=== PATIENT | female | born 1965 | race Caucasian/White ===

== ENCOUNTER 2016-10-26 03:40 | Emergency (ER) | payer MEDICAID ==
[~2016-10-26] VITALS: Ht 160 cm; Wt 106.6 kg
[~2016-10-26 03:40] MED LIST: ALEVE220 MG PO; AMARYL 4MG. TAB4 MG PO; ASPIRIN 81MG TA81 MG PO; CARVEDILOL 25MG25 MG PO; CENTRUM1 TAB PO; CIPRO 500MG TA500 MG PO; DIAZEPAM2 M1 PO; DILTIAZEM120 MG PO; GABAPENTIN100 M1 PO; GARLIC500 MG PO; HCTZ/LISINOPRIL1 TA3 PO; HYDROCHLOROTH12.5 M1 PO; HYDROCODONE1 TABLET PO; KEFLEX 500MG.500 MG PO; LIPITOR40 MG PO; LISINOPRIL/HCTZ1 TA3 PO; LORTAB 5/500 501 TAB PO; LORTAB 500 MG-11 TAB PO; METFORMIN500 MG PO; MOTRIN600 MG PO; MULTI VITAMINS1 TA1 PO; PYRIDIUM 200MG200 MG PO; SULFAMETHOXAZOL1 TA6 PO; THE MEDICINE S300 MG PO; TRAMADOL50 M1 PO; TYLENOL ES500 M1 PO; ULTRAM50 MG PO; VALIUM 5MG TABLE5 MG PO; VALIUM5 MG PO; VICODIN 5/500 T1 TAB PO; ZESTRIL 20MG TA20 MG PO
[2016-10-26 04:20] LABS: HEMOGLOBIN 12.6 g/dL (12.2-16.2); LYMPH # 2.5 K/mm3 (0.7-4.5); LYMPH % 30.4 % (10-50.0)
[2016-10-26 04:43] LABS: BUN 13 mg/dL (7-18)
[2016-10-26 04:46] LABS: GFR (ESTIMATED) 66 ML/MIN (59-)
--- NOTE | 2016-10-26 05:26 | Emergency Room Report ---
History of Present Illness Time Seen by [id number] Presenting Problem in Triage Pt arrived:Wheelchair Presenting Problem:PT REPORTS THAT SHE IS HAVING SHARP CHEST PAIN THAT BEGAN AROUND 0300 THIS AM AND IS ON THE LEFT SIDE AND RADIATES UP TOWARD HER SHOULDER. 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 N Clinical Suspician of Infection? N Mental Status: 1 - Regular (Normal Baseline) Sepsis Risk:Low Sepsis Risk Have you (or family members/close friends) recently traveled outside the [place]? N If Yes, where/when: Have you had exposure to infectious disease within the past month? N TB? Other? Specify: Source patient, RN notes reviewed, family, RN/MD Exam Limitations no limitations Comment This is a 51-year-old diabetic female patient presenting to the emergency room with midsternal chest pain, onset 1 hour prior to arrival. Patient advised that she has had heart cath 3 years ago, which was normal. She did not receive any cardiac stents at that time. She recently had a stress test, but she is unaware of results. She has a follow-up appointment with Dr. De Jesus at 8:30 AM this morning. ALLERGIES Coded Allergies: Mushroom (Severe, M-[id number]/THROAT 08/02/16) latex (rash 08/02/16) methocarbamol (08/02/16) Uncoded Allergies: COCA COLA (12/24/13) baby oil (baby oil 10/30/15) Home Medications Reported Medications Glimepiride (Amaryl 4MG) 2 MG PO DAILY Metformin HCL (Metformin) 500 MG PO QHS MULTIVITAMIN (One Daily Multivitamin) 1 TAB PO DAILY Gabapentin (Gabapentin 100MG) 300 MG PO TID TRAMADOL HCL (Tramadol) 50 MG PO PRN PRN PAIN ASPIRIN (Aspirin) 81 MG PO DAILY Carvedilol (Carvedilol 25MG) 25 MG PO BID LISINOPRIL/HYDROCHLOROTHIAZIDE (Lisinopril-Hctz 20-12.5 MG Tab) 1 TAB PO DAILY Naproxen Sodium (Aleve) 500 MG PO BID Diazepam 2 MG PO PRN PRN ANXIETY #60 History Medical History General CAD? No Angina: Yes [place]: No Hypertension? Yes Hyperlipidemia? Yes CHF? Yes DVT? No PE? No COPD? Yes Asthma? No Anemia? No GERD? No Gastric ulcers? No GI Bleed? No Hernia? No Thyroid Problems? No Hypothyroidism? No CVA? No Seizures? No Diabetes? Yes Insulin Dependent: No Insulin Pump: No Home FSBS? Yes Renal Insuffiency? No End Stage Renal Disease? No UTI? Yes Stones? Yes BPH? No GB Disease: Yes Nephritic Syndrome? No Asplenia? No Hepatitis? No Sickle Cell Disease? No Arthritis? Yes Migraines? No Cataracts? No Glaucoma? No MRSA? No HIV? No TB? No Anxiety? No Depression? 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 Months Or More Family History Family Hx Diabetes Yes CAD Yes Hypertension Yes Hyperlipidemia Yes Cancer Yes TB No Social History Smoking Hx Smoker: Former Smoker Tobacco: No Alcohol Alcohol: No Review of Systems All Other Systems Reviewed and Negative Cardiovascular chest pain Physical Exam Vital Signs Vital Signs Date Time Temp Pulse Resp B/P Pulse O2 O2 Flow FiO2 Ox Delivery Rate 10/26 0657 63 18 112/65 97 2 10/26 0622 66 18 122/66 97 10/26 0532 70 16 104/58 95 2 10/26 0441 71 16 115/69 96 2 10/26 0415 96 10/26 0408 76 20 115/48 96 2 10/26 0343 98.6 86 22 134/91 96 2 General Appearance normal appearance, WD/WN Neck normal inspection, non-tender, supple, full range of motion Respiratory Status Yes: trachea midline, chest symmetrical, non tender chest. No: respiratory distress. Lung Sounds bilateral: normal breath sounds, lungs clear. Cardiovascular normal exam, regular rate/rhythm, no peripheral edema, no gallop, no JVD, no murmur, no rub, normal peripheral pulses Gastrointestinal normal bowel sounds, normal exam, non tender, soft, no organomegaly Extremities non-tender, normal range of motion, normal inspection Neurologic alert, air sampling and monitoring II-XII nml as tested, normal exam, oriented x 3 Mental status normal mood/affect Skin intact, normal color, warm/dry Medical Decision Making LABS/Meds/Orders Pt receiving controlled substance in ED? No Comment 05:39am-Dr. De La Paz paged. 06:10am-case discussed with Dr. De La Paz covering for Dr. Robles, advised of patient's presentation, physical exam, workup, as well as ED course. Patient's stress test being negative, electrocardiogram and cardiac enzyme as well, Dr. De La Paz who recommended to repeat a second cardiac enzyme and if negative to discharge patient home as she already has an appointment with Dr. De Jesus at 8: 30 AM today. 07:20am-7 and cardiac enzyme is negative patient will be discharged home, instructed to see Dr. De Jesus in an hour, in the office. Results/Orders Laboratory Tests 10/26/16 0640: Creatine Kinase 93, CK-MB (CK-2) Rel Index 0.8, CK and CKMB Interp 0.7, Troponin I < 0.02 10/26/16 0400: Sodium 140, Potassium 3.6, Chloride 101, Carbon Dioxide 35 H, BUN 13, Creatinine 0.9, Estimated Creat Clear 123, Estimated GFR (MDRD) 66, Glucose 221 H, Calcium 8.5, Total Bilirubin 0.5, AST 10 L, ALT 24, Alkaline Phosphatase 70, Creatine Kinase 103, CK-MB (CK-2) Rel Index 0.6, CK and CKMB Interp 0.6, Troponin I < 0.02, Total Protein 6.8, Albumin 3.0 L, Globulin 3.8 H, Albumin/ Globulin Ratio 0.8 L, WBC 8.3, RBC 4.03 L, Hgb 12.6, Hct 36.0 L, MCV 89.1, RDW 13.3, Plt Count 249, MPV 6.0 L, Gran % 58.0, Gran # 4.8, Lymphocytes % 30.4 , Monocytes % 4.6, Eosinophils % 6.4, Basophils % 0.6, Lymphocytes # 2.5, Monocytes # 0.4, Eosinophils # 0.5 H, Basophils # 0.1, PUBS MCHC 35.2, MCH 31.3 H Current Medication Orders Sig/Lukas Start time Last Medication Dose Route Stop Time Status Admin Aspirin 324 MG ONCE ONE 10/26 414 DC 10/26 PO 10/26 Sodium Chloride 10 ML PRN PRN 10/26 414 AC IV 10/27 410 Aspirin 0 .STK-MED ONE 10/26 412 DC .ROUTE Orders Procedure Date/time Status CARDIAC ENZYMES 10/26 635 Complete OXYGEN PER NURSE 10/26 411 Active ELECTROCARDIOGRAM REQUEST 10/26 410 Active CHEST-PORTABLE 10/26 410 Active IV SALINE LOCK 10/26 410 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 of ischemic chgs, no ectopy, normal QRS, normal MT, no EKG for comparison, non-spec. ST/Twave chgs, ST elevation, ST depression, LBBB, RBBB, ectopy, abnormal Q waves XRAY/CT/US XRAY/CT/US XRAY chest XR interpretation by reviewed by me Xray Results no infiltrates, normal heart size, normal lung inflation beau Departure Departure Time of Disposition 05 Disposition DC Home or Self Care(routine) Clinical Impression Primary Impression: Chest pain Qualifiers: Chest pain type: unspecified Qualified Code: R07.9 - Chest pain, unspecified Condition STABLE Referrals Mary Coleman APRN (Family) Tevin De Jesus MD: Today after leaving ER Patient Instructions DI for Atypical Chest Pain Additional Instructions Please follow-up with Dr. De Jesus in the office within 2 days regarding your recurrent chest pain. Please continue same medications as previously prescribed. Discharge Counseling Counseled pt/family regarding diagnosis, test results, medications/RX, home care, follow up needs Comment Please follow-up with Dr. De Jesus in the office within 2 days regarding your recurrent chest pain. Please continue same medications as previously prescribed. ED Critical Care Critical Care No at 0723
--- NOTE | 2016-10-26 05:26 | Emergency Room Report ---
History of Present Illness Time Seen by [id number] Presenting Problem in Triage Pt arrived:Wheelchair Presenting Problem:PT REPORTS THAT SHE IS HAVING SHARP CHEST PAIN THAT BEGAN AROUND 0300 THIS AM AND IS ON THE LEFT SIDE AND RADIATES UP TOWARD HER SHOULDER. 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 N Clinical Suspician of Infection? N Mental Status: 1 - Regular (Normal Baseline) Sepsis Risk:Low Sepsis Risk Have you (or family members/close friends) recently traveled outside the [place]? N If Yes, where/when: Have you had exposure to infectious disease within the past month? N TB? Other? Specify: Source patient, RN notes reviewed, family, RN/MD Exam Limitations no limitations Comment This is a 51-year-old diabetic female patient presenting to the emergency room with midsternal chest pain, onset 1 hour prior to arrival. Patient advised that she has had heart cath 3 years ago, which was normal. She did not receive any cardiac stents at that time. She recently had a stress test, but she is unaware of results. She has a follow-up appointment with Dr. De Jesus at 8:30 AM this morning. ALLERGIES Coded Allergies: Mushroom (Severe, S-[id number]/THROAT 08/02/16) latex (rash 08/02/16) methocarbamol (08/02/16) Uncoded Allergies: COCA COLA (12/24/13) baby oil (baby oil 10/30/15) Home Medications Reported Medications Glimepiride (Amaryl 4MG) 2 MG PO DAILY Metformin HCL (Metformin) 500 MG PO QHS MULTIVITAMIN (One Daily Multivitamin) 1 TAB PO DAILY Gabapentin (Gabapentin 100MG) 300 MG PO TID TRAMADOL HCL (Tramadol) 50 MG PO PRN PRN PAIN ASPIRIN (Aspirin) 81 MG PO DAILY Carvedilol (Carvedilol 25MG) 25 MG PO BID LISINOPRIL/HYDROCHLOROTHIAZIDE (Lisinopril-Hctz 20-12.5 MG Tab) 1 TAB PO DAILY Naproxen Sodium (Aleve) 500 MG PO BID Diazepam 2 MG PO PRN PRN ANXIETY #60 History Medical History General CAD? No Angina: Yes [place]: No Hypertension? Yes Hyperlipidemia? Yes CHF? Yes DVT? No PE? No COPD? Yes Asthma? No Anemia? No GERD? No Gastric ulcers? No GI Bleed? No Hernia? No Thyroid Problems? No Hypothyroidism? No CVA? No Seizures? No Diabetes? Yes Insulin Dependent: No Insulin Pump: No Home FSBS? Yes Renal Insuffiency? No End Stage Renal Disease? No UTI? Yes Stones? Yes BPH? No GB Disease: Yes Nephritic Syndrome? No Asplenia? No Hepatitis? No Sickle Cell Disease? No Arthritis? Yes Migraines? No Cataracts? No Glaucoma? No MRSA? No HIV? No TB? No Anxiety? No Depression? 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 Or More Family History Family Hx Diabetes Yes CAD Yes Hypertension Yes Hyperlipidemia Yes Cancer Yes TB No Social History Smoking Hx Smoker: Former Smoker Tobacco: No Alcohol Alcohol: No Review of Systems All Other Systems Reviewed and Negative Cardiovascular chest pain Physical Exam Vital Signs Vital Signs Date Time Temp Pulse Resp B/P Pulse O2 O2 Flow FiO2 Ox Delivery Rate 10/26 0657 63 18 112/65 97 2 10/26 0622 66 18 122/66 97 10/26 0532 70 16 104/58 95 2 10/26 0441 71 16 115/69 96 2 10/26 0415 96 10/26 0408 76 20 115/48 96 2 10/26 0343 98.6 86 22 134/91 96 2 General Appearance normal appearance, WD/WN Neck normal inspection, non-tender, supple, full range of motion Respiratory Status Yes: trachea midline, chest symmetrical, non tender chest. No: respiratory distress. Lung Sounds bilateral: normal breath sounds, lungs clear. Cardiovascular normal exam, regular rate/rhythm, no peripheral edema, no gallop, no JVD, no murmur, no rub, normal peripheral pulses Gastrointestinal normal bowel sounds, normal exam, non tender, soft, no organomegaly Extremities non-tender, normal range of motion, normal inspection Neurologic alert, study lead II-XII nml as tested, normal exam, oriented x 3 Mental status normal mood/affect Skin intact, normal color, warm/dry Medical Decision Making LABS/Meds/Orders Pt receiving controlled substance in ED? No Comment 05:39am-Dr. De La Paz paged. 06:10am-case discussed with Dr. De La Paz covering for Dr. Robles, advised of patient's presentation, physical exam, workup, as well as ED course. Patient's stress test being negative, electrocardiogram and cardiac enzyme as well, Dr. De La Paz who recommended to repeat a second cardiac enzyme and if negative to discharge patient home as she already has an appointment with Dr. De Jesus at 8: 30 AM today. 07:20am-7 and cardiac enzyme is negative patient will be discharged home, instructed to see Dr. De Jesus in an hour, in the office. Results/Orders Laboratory Tests 10/26/16 0640: Creatine Kinase 93, CK-MB (CK-2) Rel Index 0.8, CK and CKMB Interp 0.7, Troponin I < 0.02 10/26/16 0400: Sodium 140, Potassium 3.6, Chloride 101, Carbon Dioxide 35 H, BUN 13, Creatinine 0.9, Estimated Creat Clear 123, Estimated GFR (MDRD) 66, Glucose 221 H, Calcium 8.5, Total Bilirubin 0.5, AST 10 L, ALT 24, Alkaline Phosphatase 70, Creatine Kinase 103, CK-MB (CK-2) Rel Index 0.6, CK and CKMB Interp 0.6, Troponin I < 0.02, Total Protein 6.8, Albumin 3.0 L, Globulin 3.8 H, Albumin/ Globulin Ratio 0.8 L, WBC 8.3, RBC 4.03 L, Hgb 12.6, Hct 36.0 L, MCV 89.1, RDW 13.3, Plt Count 249, MPV 6.0 L, Gran % 58.0, Gran # 4.8, Lymphocytes % 30.4 , Monocytes % 4.6, Eosinophils % 6.4, Basophils % 0.6, Lymphocytes # 2.5, Monocytes # 0.4, Eosinophils # 0.5 H, Basophils # 0.1, PUBS MCHC 35.2, MCH 31.3 H Current Medication Orders Sig/Lukas Start time Last Medication Dose Route Stop Time Status Admin Aspirin 324 MG ONCE ONE 10/26 414 DC 10/26 PO 10/26 Sodium Chloride 10 ML PRN PRN 10/26 414 AC IV 10/27 410 Aspirin 0 .STK-MED ONE 10/26 412 DC .ROUTE Orders Procedure Date/time Status CARDIAC ENZYMES 10/26 635 Complete OXYGEN PER NURSE 10/26 411 Active ELECTROCARDIOGRAM REQUEST 10/26 410 Active CHEST-PORTABLE 10/26 410 Active IV SALINE LOCK 10/26 410 Active SUPERVISOR REMELT 10/26 410 Active CBC WITH AUTO DIFF 10/26 410 Complete CARDIAC ENZYMES 10/26 410 Complete CHEM 12 PROFILE 10/26 410 Complete 12 LEAD EKG-JESENIA (INITIAL) 10/26 UNK 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 of ischemic chgs, no ectopy, normal QRS, normal [place], no EKG for comparison, non-spec. ST/Twave chgs, ST elevation, ST depression, LBBB, RBBB, ectopy, abnormal Q waves XRAY/CT/US XRAY/CT/US XRAY chest XR interpretation by reviewed by me Xray Results no infiltrates, normal heart size, normal lung inflation beau Departure Departure Time of Disposition 05 Disposition DC Home or Self Care(routine) Clinical Impression Primary Impression: Chest pain Qualifiers: Chest pain type: unspecified Qualified Code: R07.9 - Chest pain, unspecified Condition STABLE Referrals Mary Coleman APRN (Family) Tevin De Jesus MD: Today after leaving ER Patient Instructions DI for Atypical Chest Pain Additional Instructions Please follow-up with Dr. De Jesus in the office within 2 days regarding your recurrent chest pain. Please continue same medications as previously prescribed. Discharge Counseling Counseled pt/family regarding diagnosis, test results, medications/RX, home care, follow up needs Comment Please follow-up with Dr. De Jesus in the office within 2 days regarding your recurrent chest pain. Please continue same medications as previously prescribed. ED Critical Care Critical Care No at 0723
[2016-10-26 07:59] VITALS: BP 112/47
--- NOTE | 2016-10-26 11:27 | RADIOLOGY REPORT PS360 ---
CHEST-PORTABLE ORDERING PHYSICIAN : Joe Child MD PATIENT AGE: 51 years GENDER: Female INDICATION: chest pain CHEST PAIN PROCEDURE: CHEST-PORTABLE . COMPARISON: February 2011 and March 2007 FINDINGS: Lungs well expanded and clear. No active disease. No pneumothorax. No pleural effusion. . Slight additional prominence of pulmonary vascularity but no overt CHF heart upper normal in size. monitoring and evaluation advisor leads are in place Hilar and mediastinal structures appear satisfactory. Chest wall unremarkable. T-spine intact. IMPRESSION Stable chest No active disease Heart upper normal in size.
--- NOTE | 2016-10-26 11:27 | RADIOLOGY REPORT PS360 ---
CHEST-PORTABLE ORDERING PHYSICIAN : Joe Child MD PATIENT AGE: 51 years GENDER: Female INDICATION: chest pain CHEST PAIN PROCEDURE: CHEST-PORTABLE . COMPARISON: February 2011 and March 2007 FINDINGS: Lungs well expanded and clear. No active disease. No pneumothorax. No pleural effusion. . Slight additional prominence of pulmonary vascularity but no overt CHF heart upper normal in size. playground monitor leads are in place Hilar and mediastinal structures appear satisfactory. Chest wall unremarkable. T-spine intact. IMPRESSION Stable chest No active disease Heart upper normal in size.
== END 2016-10-26 08:00 | disposition home or self-care (01) ==
LOC: ER 03:40
PROVIDERS: Emergency Medicine
DX: R07.9 Chest pain, unspecified (principal); I10 Essential (primary) hypertension; J44.9 Chronic obstructive pulmonary disease, unspecified